=== PATIENT | female | born 1990 | race Caucasian/White ===

== ENCOUNTER → 2018-09-25 | Outpatient (CLI) | payer BC | LOC: LAB 09:26 | PROVIDERS: ATTEND Student in an Organized Health Care Education/Training Program | DX: Z34.91 Encounter for supervision of normal pregnancy, unspecified, first trimester (principal) | CPT/HCPCS: 87491; 87591 ==

== ENCOUNTER → 2018-12-07 | Outpatient (CLI) | payer BC ==
[~2018-12-07] MED LIST: VALA500T66 PO
--- NOTE | 2018-12-07 15:13 | RADIOLOGY IMAGING REPORT ---
FACILITY: [facility] - [place] PATIENT NAME: Adry Cohen : 1990 MR: [id number] V: [id number] EXAM DATE: [id number] ORDERING PHYSICIAN: JOSE MADISON TECHNOLOGIST: Location: [facility] - [place] Patient: Adry Cohen : 1990 Visit/Account:[id number] Date of Sevice: 12/07/2018 OB Ultrasound > 14 weeks with anatomic evaluation HISTORY: Anatomic survey. COMPARISON STUDIES: None available FINDINGS: Intrauterine gestations: one presentation: Variable heart rate: 156 bpm Amniotic fluid index: 21.5 cm Largest amniotic fluid pocket 6.3 cm Placenta: Anterior without previa Uterus: gravid, otherwise normal Maternal adnexa: Unremarkable Cervix: long and closed Gestational Parameters: BPD: 5.30 cm 22 weeks and 1 day. 96 percentile HC: 19.5 cm 22 weeks and 1 day. 95th percentile AC: 17.05 cm 22 weeks and 1 day. 89th percentile FL: 3.40 cm 20 weeks and 5 days. 51st percentile Average ultrasound age (AUA): 21 weeks and 6 days Estimated gestational age based on LMP datin weeks and 3 days JULIANNE: 04/13/2019 based on today's ultrasound age Estimated weight (EFW): 429 g +/-63 g EFW: 94th percentile Anatomic Survey: Intracranial structures, 4-chamber heart, stomach, kidneys, urinary bladder, spine, 3-vessel cord and cord insertion are unremarkable. Two upper and two lower extremities visualized. IMPRESSION: 1. Single live intrauterine gestation; estimated ultrasound age 21 weeks and 6 days. 2. Unremarkable anatomic survey 3. Estimated weight is at the 94th percentile. Recommend correlation for accurate LMP dating. 4. NATHAN measures 21.5 cm. Report Dictated By: Devang Burdick MD at 12/07/2018 3:05 PM Report E-Signed By: Devang Burdick MD at 12/07/2018 3:08 PM WSN:[id number]
== END ==
LOC: US 02:18
PROVIDERS: ATTEND Student in an Organized Health Care Education/Training Program
DX: Z36.89 Encounter for other specified antenatal screening (principal); Z3A.21 21 weeks gestation of pregnancy
CPT/HCPCS: 76805

== ENCOUNTER → 2019-01-29 | Outpatient (CLI) | payer BC ==
[~2019-01-29] MED LIST changes: +DIPH0.5S2 IM; +RHO(150015 IM
[2019-01-29 17:00] LABS: PLATELET COUNT, AUTOMATED 261 K/uL (150-450)
== END ==
LOC: LAB 09:15
PROVIDERS: ATTEND Student in an Organized Health Care Education/Training Program
DX: Z34.92 Encounter for supervision of normal pregnancy, unspecified, second trimester (principal)
CPT/HCPCS: 36415; 82950; 85025; 86703

== ENCOUNTER → 2019-03-26 | Outpatient (CLI) | payer BC ==
[~2019-03-26] MED LIST changes: +PREN-127 PO
== END ==
LOC: LAB 08:11
PROVIDERS: ATTEND Student in an Organized Health Care Education/Training Program
DX: Z36.85 Encounter for antenatal screening for Streptococcus B (principal)
CPT/HCPCS: 87081